=== PATIENT | male | born 1970 ===

== ENCOUNTER 2020-09-04 09:26 | Inpatient (IN) | payer BC, OTHER ==
[~2020-09-04] VITALS: Ht 177.8 cm; Wt 76.2 kg
[2020-09-04] MEDS ORDERED: FENTANYL PF 250 MCG/5ML ONE (09:28)
[2020-09-04] MEDS ORDERED: MIDAZOLAM 1 MG/ML, 5ML ONE (09:28)
[2020-09-04] MEDS ORDERED: LIDOCAINE 1%, 20ML ONE (09:29)
[2020-09-04] MEDS ORDERED: BIVALIRUDIN 250 MG ONE (09:29)
[2020-09-04] MEDS ORDERED: ASPIRIN 325 MG TABLET PO STA (09:30)
--- NOTE | 2020-09-04 09:32 | NUR ---
code cardiac @0916 pg cards @ [id number]
[2020-09-04 09:39] LABS: BASOPHILS % (AUTO) 1 % (0-1); EOSINOPHILS % (AUTO) 1 % (1-7); LYMPHOCYTES % (AUTO) 27 % (22-44); MEAN CORPUSCULAR HEMOGLOBIN 30.6 pg (27.5-34.5); MEAN CORPUSCULAR HGB CONC 33.4 g/dL (33.2-36.2); MONOCYTES % (AUTO) 5 % (2-9); NEUTROPHILS % (AUTO) 67 % (42-75); PLATELET COUNT 360 x10^3/uL (130-400); RED BLOOD COUNT 4.24 x10^6/uL (4.38-5.82); RED CELL DISTRIBUTION WIDTH 13.3 % (9.4-14.8)
[2020-09-04 09:52] LABS: INTERNATIONAL NORMALIZED RATIO 0.93 (0.93-1.1)
--- NOTE | 2020-09-04 09:52 | NUR ---
PT BIB EMS MED[facility] 16 FOR CHEST PAIN. PT ARIVED AT 0929, MD MORENO AND BIENVENIDO HINDS AT BEDSIDE. EMS/PT REPORTS CP STARTING AT 0900 AT WORK (3/10 PAIN) THE FEELING OF TIGHTNESS IN THE CENTER OF HIS CHEST WITH RADIATION TO THE LEFT ARM. 650 MG ASA,50 MCG OF FENT GIVEN BY EMS WITH NO RELIEF.EMS REPORTS ELIVATION IN 2,3,AVF. NO PAST MEDICAL ISSUES, NKA, VITALS PER EMS HR 40, BP 101/86, SPO2 95% ON ROOM AIR WITH AN LEFT 18G IV STARTED.PT REPORTS EATING LAST NIGHT AT 2300 AND HAD A CUP OF COFFEE THIS AM 0700.PULSE OX PUT ON RIGHT THUMB, BP ON LEFT ARM, PT ON CONT MOLD CAPPER, PT ON TRANSPARENT PADS, 18G IV STARTED IN RIGHT AC WITH BLOOD DRAW. PT TAKEN TO STOCK LETTERER AT 0937, GAVE REPORT TO CHARLEY, ALL QUESTIONS ANSWERED.
[2020-09-04 10:00] LABS: TROPONIN I 0.018 ng/mL (0.000-0.045)
[2020-09-04] MEDS ORDERED: NITROGLYCERIN 0.4 MG BOTTLE (25 TABS) SL PRN (10:00)
[2020-09-04] MEDS ORDERED: ASPIRIN 81 MG TABLET EC PO ONE (10:00)
[2020-09-04] MEDS ORDERED: ASPIRIN 325 MG TABLET EC PO ONE (10:00)
[2020-09-04] MEDS ORDERED: ACETAMINOPHEN 325 MG TABLET PO PRN (10:00)
[2020-09-04] MEDS ORDERED: ONDANSETRON 2MG/ML, 2ML IVPush PRN ×2 (10:00→11:00)
[2020-09-04] MEDS ORDERED: NITROGLYCERIN 0.4 MG/SPRAY SL PRN (10:00)
[2020-09-04] MEDS: PLEASE ENTER HEIGHT AND WEIGHT MC SCH ×2 (10:00→11:31)
[2020-09-04] MEDS: SODIUM CHLORIDE 0.9% 1,000 ML IV SCH ×4 (10:00→20:37)
[2020-09-04] MEDS ORDERED: BISACODYL 10 MG SUPP PR PRN (10:00)
[2020-09-04] MEDS ORDERED: PLEASE ENTER ALLERGIES MC SCH (10:00)
[2020-09-04 10:03] LABS: PARTIAL THROMBOPLASTIN TIME < 23 Seconds (25-31)
[2020-09-04] MEDS ORDERED: TIROFIBAN HCL MONOHYDRATE 15 ML ONE (10:19)
[2020-09-04 10:30] LABS: CHOL/HDL RATIO 5.2; LDL/HDL RATIO 3.8 (0.5-3.0)
[2020-09-04] MEDS ORDERED: PRASUGREL 10 MG TABLET ONE (10:39)
[2020-09-04] MEDS ORDERED: ZOLPIDEM 5MG TABLET PO PRN (11:00)
[2020-09-04] MEDS ORDERED: hydrALAzine 20 MG/ML, 1ML IV PRN (12:00)
[2020-09-04] MEDS ORDERED: hydrALAzine 20 MG/ML, 1ML IV ONE (12:00)
[2020-09-04 14:58] VITALS: BP 168/89
[2020-09-04] MEDS: TIROFIBAN-0.9% SODIUM CHLORIDE 100 ML IV SCH (17:17)
[2020-09-04] MEDS ORDERED: MORPHINE SULFATE 4 MG/ML, 1ML ONE (17:43)
[2020-09-04] MEDS ORDERED: MORPHINE SULFATE 4 MG/ML, 1ML IVPush PRN (18:00)
[2020-09-04] MEDS: ATORVASTATIN 80 MG TABLET PO SCH (20:38)
[2020-09-05] MEDS: TIROFIBAN-0.9% SODIUM CHLORIDE 100 ML IV SCH (00:04)
[2020-09-05] MEDS: SODIUM CHLORIDE 0.9% 1,000 ML IV SCH ×5 (01:45→17:20)
[2020-09-05 04:49] LABS: MEAN CORPUSCULAR HEMOGLOBIN 30.8 pg (27.5-34.5); MEAN CORPUSCULAR HGB CONC 33.8 g/dL (33.2-36.2); PLATELET COUNT 320 x10^3/uL (130-400); RED BLOOD COUNT 4.09 x10^6/uL (4.38-5.82); RED CELL DISTRIBUTION WIDTH 13.4 % (9.4-14.8)
[2020-09-05 04:54] LABS: ANION GAP 6 mmol/L (5-15); CALCIUM 8.2 mg/dL (8.5-10.1); CHLORIDE 110 mmol/L (98-107)
[2020-09-05] MEDS ORDERED: ASPIRIN 81 MG TABLET EC PO SCH (09:00)
[2020-09-05] MEDS ORDERED: METOPROLOL TARTRATE 25 MG TAB PO ONE (09:00)
[2020-09-05] MEDS: EZETIMIBE 10 MG TABLET PO SCH (09:19)
[2020-09-05] MEDS: LISINOPRIL 5 MG TABLET PO SCH (09:19)
[2020-09-05] MEDS: ASPIRIN 81 MG TABLET EC PO SCH (09:19)
[2020-09-05] MEDS: PRASUGREL 10 MG TABLET PO SCH (09:19)
[2020-09-05 14:51] VITALS: BP 119/71
[2020-09-05 19:07] VITALS: BP 127/75
[2020-09-05] MEDS: ATORVASTATIN 80 MG TABLET PO SCH (20:48)
[2020-09-06 00:49] VITALS: BP 116/70
[2020-09-06] MEDS ORDERED: METOPROLOL SUCCINATE 25 MG TAB.ER.24H PO SCH (06:00)
[2020-09-06 07:04] VITALS: BP 110/70
[2020-09-06] MEDS: ASPIRIN 81 MG TABLET EC PO SCH (08:19)
[2020-09-06] MEDS: EZETIMIBE 10 MG TABLET PO SCH (08:19)
[2020-09-06] MEDS: PRASUGREL 10 MG TABLET PO SCH (08:20)
[2020-09-06] MEDS: LISINOPRIL 5 MG TABLET PO SCH (08:20)
[2020-09-06] MEDS ORDERED: ASPI81TA45 PO (08:49)
[2020-09-06] MEDS ORDERED: LISI5TAB7 PO (08:49)
[2020-09-06] MEDS ORDERED: PRAS10TA4 PO (08:49)
[2020-09-06] MEDS ORDERED: ATOR-2 PO (08:49)
[2020-09-06] MEDS ORDERED: NITR0.4T28 SL (08:49)
[2020-09-06] MEDS ORDERED: EZET10TA48 PO (08:49)
[2020-09-06] MEDS ORDERED: METO25TA91 PO (08:49)
== END 2020-09-06 10:45 | disposition home or self-care (01) | DRG 247 ==
LOC: EDBD 09:26 → EDSEX 09:26 → ED 09:43 → EDBD 10:34 → EDIP 10:34 → CCU 11:01 → 5SO 09-05 12:03 → DCLOUNGE 09-06 10:38
PROVIDERS: ADMIT Internal Medicine Cardiovascular Disease; ATTEND Internal Medicine Cardiovascular Disease
PROC: 027236Z Dilation of Coronary Artery, Three Arteries with Three Drug-eluting Intraluminal Devices, Percutaneous Approach (ICD-10-PCS; principal; 2020-09-04)
PROC: 4A023N7 Measurement of Cardiac Sampling and Pressure, Left Heart, Percutaneous Approach (ICD-10-PCS; 2020-09-04)
PROC: B2111ZZ Fluoroscopy of Multiple Coronary Arteries using Low Osmolar Contrast (ICD-10-PCS; 2020-09-04)
PROC: B2151ZZ Fluoroscopy of Left Heart using Low Osmolar Contrast (ICD-10-PCS; 2020-09-04)
DX: I21.19 ST elevation (STEMI) myocardial infarction involving other coronary artery of inferior wall (principal); E78.5 Hyperlipidemia, unspecified; Z87.891 Personal history of nicotine dependence; Z79.899 Other long term (current) drug therapy; Z79.891 Long term (current) use of opiate analgesic; Z79.01 Long term (current) use of anticoagulants
CPT/HCPCS: 36415; 92978; 93458; 99285; C9601; J3490; 71045; 80047; 80048; 80061; 84484; 85025; 85027; 85610; 85730; 87081; 93005; 93306; 93356; 99156; 99157; C1753; C1760; C1769; C1894; G0378; J0583; J2250; J3010; C1725; C1874; C1887; J0360; J2270; J3246; J7030; Q9967